=== PATIENT | male | born 1990 | race African-American/Black ===

== ENCOUNTER 2021-04-19 02:36 | Emergency (ER) | payer OTHER ==
[~2021-04-19] VITALS: Ht 170.2 cm; Wt 65.0 kg
[2021-04-19 06:01] VITALS: BP 129/80
== END 2021-04-19 06:01 | disposition home or self-care (01) ==
LOC: EMS 02:38
DX: S93.402A Sprain of unspecified ligament of left ankle, initial encounter (principal); X50.1XXA Overexertion from prolonged static or awkward postures, initial encounter; Y93.89 Activity, other specified; Y92.89 Other specified places as the place of occurrence of the external cause; Y99.8 Other external cause status
CPT/HCPCS: 99285; 73590-TC; 73610-TC; Z7502